=== PATIENT | female | born 1935 | race Caucasian/White ===

== ENCOUNTER 2016-06-14 09:31 | Emergency (ER) | payer OTHER ==
--- NOTE | 2016-06-14 10:02 | PROVIDER DOCUMENTATION ---
HPI-Neurological Disorder - General Chief Complaint: Stroke-Like Symptoms Stated Complaint: Poss TIA Time Seen by Provider: 06/14/16 09:34 Source: patient, family, EMS Allergies/Adverse Reactions: Patient Allergies Allergy/AdvReac Type Severity Reaction Status Date / Time promethazine HCl * Allergy Severe ANAPHYLAXIS Verified 06/14/16 10:45 [From Phenergan] ;ITCHING;DE LUSIONAL; sulfamethoxazole Allergy Severe HIVES; Verified 06/14/16 10:45 [From Bactrim] "RAISES TEMPERATURE" diazepam [From Valium] Allergy ITCHING Verified 06/14/16 10:45 trimethoprim [From Bactrim] Allergy HIVES;"RAISES Verified 06/14/16 10:45 TEMPERATURE" morphine AdvReac ITCHING Verified 06/14/16 10:45 Home Medications: Home Medication List Medication Instructions Recorded Confirmed Last Taken Type Allopurinol 300 mg PO QAM 12/02/13 06/14/16 06/13/16 History Isosorbide Mononitrate E.r. [Imdur] 30 mg PO QAM 12/02/13 06/14/16 06/13/16 History Metoprolol Succinate E.r. [Toprol 25 mg PO BID #0 05/19/14 06/14/16 06/13/16 Rx Xl] Omeprazole [Prilosec] 20 mg PO DAILY@0700 #0 capsule 11/08/15 06/14/16 06/13/16 Rx Cinnamon Bark [Cinnamon] 500 mg PO DAILY 12/02/15 06/14/16 06/13/16 History Multivitamin [Multivitamins] 1 each PO DAILY 12/02/15 06/14/16 06/13/16 History Losartan [Cozaar] 100 mg PO QAM #0 tablet 12/09/15 06/14/16 06/13/16 Rx Cranberry Conc/Ascorbic Acid 1 each PO DAILY 06/14/16 06/14/16 06/14/16 History [Cranberry Concentrate Softgel] Escitalopram [Lexapro] 10 mg PO DAILY 06/14/16 06/14/16 06/14/16 History Ranitidine [Zantac] 150 mg PO BID 06/14/16 06/14/16 06/13/16 History Rosuvastatin Calcium 10 mg PO DAILY 06/14/16 06/14/1617 History - History of Present Illness-Neuro Nature of Presenting Problem: Pt is a 80 yof that presents to er with cc of possible TIA. Daughter as historian reports that pt has dementia and hasn't been ambulatory in 6months reports she has been able to stand but not walk. 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 Daughter reports by the time she gets there that pt had a blank stare on her face and that she would not respond to being talked to. Daughter also reports two days ago she noticed pt had mouth drooping and that she thinks she had a TIA. Pt is alert and oriented with mildly confused conversation at time. Pt is able to follow commands. Severity: reports: mild Onset/Duration: reports: 2 days ago Timing: reports: still present Character of Altered Mental Status: reports: confused Any recent trauma/injury?: reports: none Character of Deficits: reports: decreased ability to stand Cognitive Baseline: alert but confused Gait Baseline: stands for transfers Similar Symptoms Previously?: Yes Recently seen or treated by another doctor?: No Review of Systems - Adult - REVIEW OF SYSTEMS - ADULT Constitutional: denies: chills, fever, fatique Eyes: reports: no symptoms reported Ears, Nose, Mouth & Throat: reports: no symptoms reported Cardiovascular: reports: no symptoms reported Respiratory: denies: chronic cough, excessive sputum production, hemoptysis, wheezing Gastrointestinal: reports: no symptoms reported Genitourinary: denies: discharge, frequent UTI's, hematuria, urgency Musculoskeletal: reports: no symptoms reported Integumentary: reports: no symptoms reported Neurological: reports: see HPI. denies: numbness, paresthesia, seizure, slurred speech, syncope, tremors Psychiatric: reports: no symptoms reported Endocrine: reports: no symptoms reported Hematologic/Lymphatic: reports: no symptoms reported Allergic/Immunologic: reports: no symptoms reported All Other Systems: Reviewed and Negative Past History - Adult - PAST MEDICAL HISTORY-ADULT Review of Records: reports: Nursing Assessment Review Major Childhood Illnesses: reports: denies history Cardiovascular: reports: HTN Respiratory: reports: denies history Gastrointestinal: reports: denies history Musculoskeletal: reports: arthritis Neurological: reports: Alzheimer's, dementia Psychiatric: reports: anxiety Endocrine/Immune: reports: denies history - PRIOR SURGERIES/PROCEDURES Surgical/Procedure History: reports: orthopedic (extremity) (right shoulder; toe ), other (cardiac cath 2013) - PRIOR HOSPITALIZATIONS Prior Hospitalizations: reports: for similar symptoms - IMMUNIZATION STATUS Childhood Immunizations: See Nurse Assessment Flu Vaccine: See Nurse Assessment - FAMILY HISTORY Family History: CAD over 55 yo, CVA/TIA - SOCIAL HISTORY Smoking: denies Substance Use: none/never Physical Exam- Neurological - Physical Exam-Neuro Initial Vital Signs Reviewed: Yes General Appearance: appears well, alert, no apparent distress Eye Exam: bilateral eye: normal inspection, PERRL, EOMI HENMT: normal ENT inspection, TMs normal, pharynx normal Head Injury: no evidence of injury Neck: non-tender, full range of motion, supple, normal inspection Respiratory: chest non-tender, lungs clear, normal breath sounds, no pleuratic chest pain, no respiratory distress, no accessory muscle use Cardiovascular: regular rate, rhythm Abdominal Exam: non tender, soft, no organomegaly, no pulsatile mass Extremity: normal range of motion, non-tender, 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 Exam: normal hearing, normal speech, PERRL Motor/Sensory: no motor deficit, no sensory deficit, no pronator drift Neurologic: veterinary science teacher II-XII nml as tested, grossly normal, no motor/sensory deficits Integumentary: normal color, normal turgor, warm/dry Psych/Mental Status: normal mood/affect - Glascow Coma Scale Best Eye Response: (4) open spontaneously Best Verbal Response: (5) oriented Best Motor Response: (6) obeys commands Total Glascow Score: 15 Progress - PLAN OF CARE/RESULTS Progress/Plan/Lab Results: Orders Category Date Time Status Cardiac Monitoring DIRECTED Care 06/14/16 09:53 Active Finger Stick Blood Sugar (ED) DIRECTED Care 06/14/16 09:53 Active Saline Loc NOW Care 06/14/16 09:53 Active CHEST-PORTABLE [RAD] Stat Exams 06/14/16 09:53 Ordered HEAD W/O CONTRAST [CT] Stat Exams 06/14/16 09:53 Ordered ALCOHOL BLOOD Stat Lab 06/14/16 09:53 Uncollected CBC WITH ELECTRONIC DIFF [HEME] Stat Lab 06/14/16 09:53 Uncollected CK PROFILE [SP CHEM] Stat Lab 06/14/16 09:53 Uncollected COMPREHENSIVE METABOLIC PANEL [CHEM] Stat Lab 06/14/16 09:53 Uncollected LACTATE, PLASMA [CHEM] Stat Lab 06/14/16 09:53 Uncollected PROTIME WITH INR [COAG] Stat Lab 06/14/16 09:53 Uncollected PTT [COAG] Stat Lab 06/14/16 09:53 Uncollected TROPONIN T Stat Lab 06/14/16 09:53 Uncollected URINALYSIS W/POSS RFLX CULT [URINALYSIS] Stat Lab 06/14/16 09:53 Uncollected Pulse Oximetry Stat Oth 06/14/16 09:53 Active EKG [EKG] Stat Ther 06/14/16 09:53 Ordered Vital Signs - 24 hr 06/14/16 06/14/16 10:35 10:50 Pulse Rate 67 73 Respiratory 21 20 Rate Blood Pressure 182/79 182/79 O2 Sat by Pulse 95 95 Oximetry Laboratory Tests 06/14/16 06/14/16 06/14/16 10:25 10:25 10:25 WBC 8.26 RBC 4.03 L Hgb 13.6 Hct 41.8 MCV 103.7 H MCH 33.7 H MCHC 32.5 L RDW Std Deviation 14.5 Plt Count 209 MPV 10.9 H Immature Gran % (Auto) 0.0 Neut % (Auto) 61.6 Lymph % (Auto) 27.6 [place] % (Auto) 8.1 Eos % (Auto) 2.5 Baso % (Auto) 0.2 Immature Gran # (Auto) 0.00 Neut # (Auto) 5.08 Lymph # (Auto) 2.28 [place] # (Auto) 0.67 H Eos # (Auto) 0.21 Baso # (Auto) 0.02 PT INR PTT (Actin FS) Sodium 141 Potassium 4.4 Chloride 100 Carbon Dioxide 28 Anion Gap 13 BUN 17 Creatinine 0.9 Estimated GFR/1.73 m2 60 BUN/Creatinine Ratio 19 Glucose 123 H Calculated Osmolality 284 Calcium 9.8 Total Bilirubin 0.48 AST 18 ALT 14 Alkaline Phosphatase 107 H Creatine Kinase 70 Troponin T Cja-L-Ksrtvztdaid Pept Total Protein 7.3 Albumin 4.1 Globulin 3.2 Albumin/Globulin Ratio 1.3 Plasma Lactate Urine Source Urine Color Urine Turbidity Urine pH Ur Specific [place] Urine Protein Ur Glucose (Stick) Ur Ketones (Stick) Urine Blood Urine Nitrite Urine Bilirubin Urobilinogen Dipstick Urine Leukocytes Urine WBC (Auto) Urine RBC (Auto) U Epithel Cells (Auto) Urine Bacteria (Auto) Plasma/Serum Ethyl Alc 06/14/16 06/14/16 06/14/16 10:25 10:25 10:25 WBC RBC Hgb Hct MCV MCH MCHC RDW Std Deviation Plt Count MPV Immature Gran % (Auto) Neut % (Auto) Lymph % (Auto) [place] % (Auto) Eos % (Auto) Baso % (Auto) Immature Gran # (Auto) Neut # (Auto) Lymph # (Auto) [place] # (Auto) Eos # (Auto) Baso # (Auto) PT 10.4 INR 1.02 PTT (Actin FS) 23.6 Sodium Potassium Chloride Carbon Dioxide Anion Gap BUN Creatinine Estimated GFR/1.73 m2 BUN/Creatinine Ratio Glucose Calculated Osmolality Calcium Total Bilirubin AST ALT Alkaline Phosphatase Creatine Kinase Troponin T < 0.010 Ojb-N-Lgdxfthktvt Pept Total Protein Albumin Globulin Albumin/Globulin Ratio Plasma Lactate 1.1 Urine Source Urine Color Urine Turbidity Urine pH Ur Specific [place] Urine Protein Ur Glucose (Stick) Ur Ketones (Stick) Urine Blood Urine Nitrite Urine Bilirubin Urobilinogen Dipstick Urine Leukocytes Urine WBC (Auto) Urine RBC (Auto) U Epithel Cells (Auto) Urine Bacteria (Auto) Plasma/Serum Ethyl Alc 06/14/16 06/14/16 10:25 11:42 WBC RBC Hgb Hct MCV MCH MCHC RDW Std Deviation Plt Count MPV Immature Gran % (Auto) Neut % (Auto) Lymph % (Auto) [place] % (Auto) Eos % (Auto) Baso % (Auto) Immature Gran # (Auto) Neut # (Auto) Lymph # (Auto) [place] # (Auto) Eos # (Auto) Baso # (Auto) PT INR PTT (Actin FS) Sodium Potassium Chloride Carbon Dioxide Anion Gap BUN Creatinine Estimated GFR/1.73 m2 BUN/Creatinine Ratio Glucose Calculated Osmolality Calcium Total Bilirubin AST ALT Alkaline Phosphatase Creatine Kinase Troponin T Tet-Y-Zxegxoimczd Pept 309 Total Protein Albumin Globulin Albumin/Globulin Ratio Plasma Lactate Urine Source CATH Urine Color YELLOW Urine Turbidity CLEAR Urine pH 5.5 Ur Specific [place] 1.012 Urine Protein NEGATIVE Ur Glucose (Stick) NEGATIVE Ur Ketones (Stick) NEGATIVE Urine Blood NEGATIVE Urine Nitrite POSITIVE A Urine Bilirubin NEGATIVE Urobilinogen Dipstick NORMAL Urine Leukocytes SMALL A Urine WBC (Auto) 10-20 A Urine RBC (Auto) <10 U Epithel Cells (Auto) <10 Urine Bacteria (Auto) 4+ Plasma/Serum Ethyl Alc Laboratory Tests 06/14/16 06/14/16 06/14/16 10:25 10:25 10:25 WBC 8.26 RBC 4.03 L Hgb 13.6 Hct 41.8 MCV 103.7 H MCH 33.7 H MCHC 32.5 L RDW Std Deviation 14.5 Plt Count 209 MPV 10.9 H Immature Gran % (Auto) 0.0 Neut % (Auto) 61.6 Lymph % (Auto) 27.6 [place] % (Auto) 8.1 Eos % (Auto) 2.5 Baso % (Auto) 0.2 Immature Gran # (Auto) 0.00 Neut # (Auto) 5.08 Lymph # (Auto) 2.28 [place] # (Auto) 0.67 H Eos # (Auto) 0.21 Baso # (Auto) 0.02 PT INR PTT (Actin FS) Sodium 141 Potassium 4.4 Chloride 100 Carbon Dioxide 28 Anion Gap 13 BUN 17 Creatinine 0.9 Estimated GFR/1.73 m2 60 BUN/Creatinine Ratio 19 Glucose 123 H Calculated Osmolality 284 Calcium 9.8 Total Bilirubin 0.48 AST 18 ALT 14 Alkaline Phosphatase 107 H Creatine Kinase 70 Troponin T Afs-F-Zzemkapgoqn Pept Total Protein 7.3 Albumin 4.1 Globulin 3.2 Albumin/Globulin Ratio 1.3 Plasma Lactate Urine Source Urine Color Urine Turbidity Urine pH Ur Specific [place] Urine Protein Ur Glucose (Stick) Ur Ketones (Stick) Urine Blood Urine Nitrite Urine Bilirubin Urobilinogen Dipstick Urine Leukocytes Urine WBC (Auto) Urine RBC (Auto) U Epithel Cells (Auto) Urine Bacteria (Auto) Plasma/Serum Ethyl Alc 06/14/16 06/14/16 06/14/16 10:25 10:25 10:25 WBC RBC Hgb Hct MCV MCH MCHC RDW Std Deviation Plt Count MPV Immature Gran % (Auto) Neut % (Auto) Lymph % (Auto) [place] % (Auto) Eos % (Auto) Baso % (Auto) Immature Gran # (Auto) Neut # (Auto) Lymph # (Auto) [place] # (Auto) Eos # (Auto) Baso # (Auto) PT 10.4 INR 1.02 PTT (Actin FS) 23.6 Sodium Potassium Chloride Carbon Dioxide Anion Gap BUN Creatinine Estimated GFR/1.73 m2 BUN/Creatinine Ratio Glucose Calculated Osmolality Calcium Total Bilirubin AST ALT Alkaline Phosphatase Creatine Kinase Troponin T < 0.010 Xum-P-Gfbvpogcqnb Pept Total Protein Albumin Globulin Albumin/Globulin Ratio Plasma Lactate 1.1 Urine Source Urine Color Urine Turbidity Urine pH Ur Specific [place] Urine Protein Ur Glucose (Stick) Ur Ketones (Stick) Urine Blood Urine Nitrite Urine Bilirubin Urobilinogen Dipstick Urine Leukocytes Urine WBC (Auto) Urine RBC (Auto) U Epithel Cells (Auto) Urine Bacteria (Auto) Plasma/Serum Ethyl Alc 06/14/16 06/14/16 10:25 11:42 WBC RBC Hgb Hct MCV MCH MCHC RDW Std Deviation Plt Count MPV Immature Gran % (Auto) Neut % (Auto) Lymph % (Auto) [place] % (Auto) Eos % (Auto) Baso % (Auto) Immature Gran # (Auto) Neut # (Auto) Lymph # (Auto) [place] # (Auto) Eos # (Auto) Baso # (Auto) PT INR PTT (Actin FS) Sodium Potassium Chloride Carbon Dioxide Anion Gap BUN Creatinine Estimated GFR/1.73 m2 BUN/Creatinine Ratio Glucose Calculated Osmolality Calcium Total Bilirubin AST ALT Alkaline Phosphatase Creatine Kinase Troponin T Rjl-E-Gorjlgkhrbe Pept 309 Total Protein Albumin Globulin Albumin/Globulin Ratio Plasma Lactate Urine Source CATH Urine Color YELLOW Urine Turbidity CLEAR Urine pH 5.5 Ur Specific [place] 1.012 Urine Protein NEGATIVE Ur Glucose (Stick) NEGATIVE Ur Ketones (Stick) NEGATIVE Urine Blood NEGATIVE Urine Nitrite POSITIVE A Urine Bilirubin NEGATIVE Urobilinogen Dipstick NORMAL Urine Leukocytes SMALL A Urine WBC (Auto) 10-20 A Urine RBC (Auto) <10 U Epithel Cells (Auto) <10 Urine Bacteria (Auto) 4+ Plasma/Serum Ethyl Alc - EKG 1 Time of EKG reading by physician:: 11:19 EKG Read and Signed by:: Deysi Abraham EKG Interpretation (*Must complete 3 of following elements*): Abnormal ( JUNCTIONAL ST DEPRESSION PROBABLY NORMAL) Rate: 66 Rhythm: UNDETERMINED RHYTHM [place]: normal QRS: normal - XRAY 1 XRAY: Bilateral XRAY Study: Chest Impression: Normal XRAY Interpretation: nad Departure - Departure Time of Disposition Order: 13:04 DIAGNOSIS: UTI (urinary tract infection) Qualifiers: Urinary tract infection type: site unspecified Hematuria presence: without hematuria Qualified Code(s): N39.0 - Urinary tract infection, site not specified Altered mental status Qualifiers: Altered mental status type: unspecified Qualified Code(s): R41.82 - Altered mental status, unspecified Disposition: HOME 01 Certified Medical Emergency: Emergent Condition: Stable Additional Instructions: Follow up with pcp ED Follow Up Instructions: You have been treated by a care provider in the Emergency Department. These instructions are being provided to you so you can have an understanding of how to care for yourself upon discharge. Upon discharge from the Emergency Department, you are responsible for making arrangements for follow-up care by a physician of your choice. Take all prescribed medications as directed. Return to the Emergency Department immediately for any new or worsening symptoms. You may call the Physician Referral phone number at [phone] to obtain a list of Physicians who are taking new patients. Attestation - Scribe Verification/Attestation Scribe:: Arnulfo Bustamante Acting as Scribe for:: Deysi Abraham Scribe documention review:: This chart was documented by a scribe and accurately reflects the service the provider performed and the decisions made by the provider. Physician Attestation - Physician Attestation I, the provider, attest to the following statement:: Deysi Abraham Physician documentation Attestation:: This documentation recorded by the scribe accurately reflects the service I personally performed and the decisions made by me.
--- NOTE | 2016-06-14 10:38 | Diag Imaging Result Document ---
PROCEDURE NAME: CHEST-PORTABLE - 06/14/2016 SINGLE FRONTAL RADIOGRAPH OF THE CHEST: COMPARISON: 12/07/2015. FINDINGS: There is evidence of prior granulomatous disease, stable. Inspiration is slightly suboptimal. The lungs are grossly clear otherwise. There is no definite pleural fluid collection. Cardiac silhouette and central vasculature are grossly unremarkable for AP technique and they are stable. IMPRESSION: No definite acute pathology by plain radiograph.
[2016-06-14 10:40] LABS: MANUAL DIFF NEEDED? NO
[2016-06-14 10:43] LABS: BASO% 0.2 % (0.0-0.8); EOS# 0.21 X1000 (0.0-0.7); EOS% 2.5 % (0.0-10.0); HEMATOCRIT 41.8 % (37.0-47.0); HEMOGLOBIN 13.6 g/dL (12.0-16.0); LYMPH# 2.28 X1000 (1.2-3.4); LYMPH% 27.6 % (20.5-51.1); MCH 33.7 PG (27-31); MCHC 32.5 g/dL (33-37); MCV 103.7 FL (81-99); MONO# 0.67 X1000 (0.11-0.59); MONO% 8.1 % (1.7-9.3); MPV 10.9 FL (7.4-10.4); NEUT% 61.6 % (42.2-75.2); PLT 209 X1000 (130-400); RBC 4.03 XMIL (4.2-5.4)
[2016-06-14 10:59] LABS: ALBUMIN 4.1 g/dL (3.5-5.0); CALCIUM 9.8 mg/dL (8.8-10.2); POTASSIUM 4.4 mmol/L (3.5-5.1); TOTAL BILIRUBIN 0.48 mg/dL (0.20-1.00); TOTAL PROTEIN 7.3 g/dL (6.3-8.3)
[2016-06-14 11:19] LABS: INR 1.02; PROTIME 10.4 Seconds (9.2-11.7); PTT 23.6 Seconds (22.0-36.0)
[2016-06-14 11:51] LABS: URINE CULTURE NEEDED? NO; URINE MICRO REVIEW NEEDED? NO; URINE SOURCE CATH
[2016-06-14 12:09] LABS: BILIRUBIN URINE NEGATIVE (NEGATIVE); BLOOD URINE NEGATIVE (NEGATIVE); COLOR YELLOW; GLUCOSE URINE NEGATIVE (NEGATIVE); LEUKOCYTES URINE SMALL (NEGATIVE); NITRITE URINE POSITIVE (NEGATIVE); PH URINE 5.5; PROTEIN URINE NEGATIVE (NEGATIVE); SP GRAVITY URINE 1.012; TURBIDITY URINE CLEAR (CLEAR); UR EPITHELIAL CELLS <10 /HPF (<10); URINE BACTERIA 4+ /HPF; URINE RBC <10 /HPF (<10); UROBILINOGEN URINE NORMAL (NORMAL)
--- NOTE | 2016-06-14 12:18 | EKG Report ---
Test Performed on : 06/14/2016 11:19:13 AM Test Reason : AMS Blood Pressure : / mmHG Vent. Rate : 066 BPM Atrial Rate : 066 BPM P-R Int : 188 ms QRS Dur : 070 ms QT Int : 424 ms P-R-T Axes : 063 -14 025 degrees QTc Int : 444 ms Undetermined rhythm Junctional ST depression, probably normal Borderline ECG When compared with ECG of 02-DEC-2015 13:25, Current undetermined rhythm precludes rhythm comparison, needs review Unconfirmed Result
[2016-06-14] MEDS ORDERED: ROCEPHIN 1 GM/NS 50 ML IV ONE (12:22)
[2016-06-14] MEDS ORDERED: LOPRESSOR IV ONE (13:04)
[2016-06-14] MEDS ORDERED: CIPRO PO ONE (13:04)
[2016-06-14] MEDS ORDERED: APRESOLINE IV ONE (13:16)
[2016-06-14] MEDS ORDERED: ZOFRAN IV ONE (15:07)
--- NOTE | 2016-06-14 15:09 | Diag Imaging Result Document ---
PROCEDURE NAME: HEAD W/O CONTRAST - 06/14/[address]: A CT dose reduction protocol was used. COMPARISON: 12/03/2015. FINDINGS: Stable mild atrophy. 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 No intracranial mass or hemorrhage. The skull is intact. The sinuses , mastoids, and middle ears are clear. IMPRESSION: No acute disease or change from prior. [facility]
[2016-06-14] MEDS ORDERED: ZOFRAN PO ONE (15:33)
[2016-06-14 16:41] VITALS: BP 164/67
== END 2016-06-14 17:08 | disposition home or self-care (01) ==
LOC: EDBD → ED 09:31
DX: N39.0 Urinary tract infection, site not specified (principal); R41.82 Altered mental status, unspecified; R94.31 Abnormal electrocardiogram [ECG] [EKG]; R29.810 Facial weakness; R41.0 Disorientation, unspecified; I10 Essential (primary) hypertension; G30.9 Alzheimer's disease, unspecified; F02.80 Dementia in other diseases classified elsewhere, unspecified severity, without behavioral disturbance, psychotic disturbance, mood disturbance, and anxiety; Z79.899 Other long term (current) drug therapy; F41.9 Anxiety disorder, unspecified; Z82.49 Family history of ischemic heart disease and other diseases of the circulatory system; Z82.3 Family history of stroke
CPT/HCPCS: 70450; 71010; 80053; 81001; 82550; 82948; 83605; 83880; 84484; 85025; 85610; 85730; 93005; G0480; J0360; J0696; 80320

== ENCOUNTER 2016-06-17 19:00 | Inpatient (IN) | payer OTHER ==
--- NOTE | 2016-06-17 19:32 | PROVIDER DOCUMENTATION ---
HPI-General Adult - History of Present Illness -Gen Adult Nature of Presenting Problems: A 80 y/o F presented with AMS, has chronic dementia had frequent visits with similar complains, has waxing and waning of symptoms this episode presened with 5-6 hrs of AMS and was concerned with symptoms <Jeremy Rausch - Last Filed: 06/17/16 20:14> <Supa Vee - Last Filed: 06/17/16 22:44> - General Chief Complaint: Altered Mental Status Stated Complaint: AMS Time Seen by Provider: 06/17/16 19:04 Allergies/Adverse Reactions: Patient Allergies Allergy/AdvReac Type Severity Reaction Status Date / Time promethazine HCl * Allergy Severe ANAPHYLAXIS Verified 06/17/16 19:52 [From Phenergan] ;ITCHING;DE LUSIONAL; sulfamethoxazole Allergy Severe HIVES; Verified 06/17/16 19:52 [From Bactrim] "RAISES TEMPERATURE" diazepam [From Valium] Allergy ITCHING Verified 06/17/16 19:52 trimethoprim [From Bactrim] Allergy HIVES;"RAISES Verified 06/17/16 19:52 TEMPERATURE" morphine AdvReac ITCHING Verified 06/17/16 19:52 Home Medications: Home Medication List Medication Instructions Recorded Confirmed Last Taken Type Allopurinol 300 mg PO QAM 12/02/13 06/17/16 06/13/16 History Isosorbide Mononitrate E.r. [Imdur] 30 mg PO QAM 12/02/13 06/17/16 06/13/16 History Metoprolol Succinate E.r. [Toprol 25 mg PO BID #0 05/19/14 06/17/16 06/13/16 Rx Xl] Omeprazole [Prilosec] 20 mg PO DAILY@0700 #0 capsule 11/08/15 06/17/16 06/13/16 Rx Cinnamon Bark [Cinnamon] 500 mg PO DAILY 12/02/15 06/17/16 06/13/16 History Multivitamin [Multivitamins] 1 each PO DAILY 12/02/15 06/17/16 06/13/16 History Losartan [Cozaar] 100 mg PO QAM #0 tablet 12/09/15 06/17/16 06/13/16 Rx Ciprofloxacin HCl [Cipro] 500 mg PO BID #20 tablet 06/14/16 06/17/16 Unknown Rx Cranberry Conc/Ascorbic Acid 1 each PO DAILY 06/14/16 06/17/16 06/14/16 History [Cranberry Concentrate Softgel] Escitalopram [Lexapro] 10 mg PO DAILY 06/14/16 06/17/16 06/14/16 History Ondansetron Odt [Zofran 4 mg Odt] 4 mg PO Q6H PRN PRN #10 tablet 06/14/16 Unknown Rx Ranitidine [Zantac] 150 mg PO BID 06/14/16 06/17/16 06/13/16 History Rosuvastatin Calcium 10 mg PO DAILY 06/14/16 06/17/16 06/14/16 History Review of Systems - Adult - REVIEW OF SYSTEMS - ADULT Constitutional: reports: no symptoms reported Eyes: reports: no symptoms reported Ears, Nose, Mouth & Throat: reports: no symptoms reported Cardiovascular: reports: no symptoms reported Respiratory: reports: no symptoms reported Gastrointestinal: reports: no symptoms reported Genitourinary: reports: no symptoms reported Musculoskeletal: reports: no symptoms reported Integumentary: reports: no symptoms reported Neurological: reports: no symptoms reported Psychiatric: reports: no symptoms reported Endocrine: reports: no symptoms reported Hematologic/Lymphatic: reports: no symptoms reported Allergic/Immunologic: reports: no symptoms reported All Other Systems: Reviewed and Negative <Jeremy Rausch - Last Filed: 06/17/16 20:14> Past History - Adult - PAST MEDICAL HISTORY-ADULT Review of Records: reports: Old Records Reviewed, Nursing Assessment Review, Medications Reviewed, Social history reviewed & non-contributory. Major Childhood Illnesses: reports: denies history Cardiovascular: reports: HTN Respiratory: reports: denies history Gastrointestinal: reports: denies history Obstetrical/Gynecological: reports: denies history Genitourinary: reports: denies history Musculoskeletal: reports: arthritis Neurological: reports: Alzheimer's, dementia Psychiatric: reports: anxiety Endocrine/Immune: reports: denies history Other Conditions: reports: denies history - PRIOR SURGERIES/PROCEDURES Surgical/Procedure History: reports: orthopedic (extremity) (right shoulder; toe ), other (cardiac cath 2013) - PRIOR HOSPITALIZATIONS Prior Hospitalizations: reports: for similar symptoms - IMMUNIZATION STATUS Childhood Immunizations: See Nurse Assessment Flu Vaccine: See Nurse Assessment - FAMILY HISTORY Family History: CAD over 55 yo, CVA/TIA <Jeremy Rausch - Last Filed: 06/17/16 20:14> Physical Exam-General - PHYSICAL EXAM-ADULT Initial Vital Signs Reviewed: Yes - CONSTITUTIONAL General Appearance: appears well, no apparent distress - EYES Eyes: PERRL/EOMI, pink conjunctivae, fundi clear, no AV nicking - HEAD, EARS, NOSE, MOUTH & THROAT HENMT: normocephalic/atraumatic, moist mucous membranes, normal ENT inspection, TMs normal - NECK Neck: non-tender, full range of motion - RESPIRATORY Respiratory: chest non-tender, lungs clear, normal breath sounds, no pleuratic chest pain, no respiratory distress, no accessory muscle use - CARDIOVASCULAR Cardiovascular: normal peripheral pulses, regular rate, rhythm, no edema, no gallop, no JVD - GASTROINTESTINAL (ABDOMEN) Abdominal Exam: normal bowel sounds, non tender, soft - MUSCULOSKELETAL Back Exam: normal inspection, other (left arm pain from prior fracture) - NEUROLOGIC Neurologic: health navigator II-XII nml as tested, grossly normal, no motor/sensory deficits - PSYCHIATRIC Psych/Mental Status: normal mood/affect <Jeremy Rausch - Last Filed: 06/17/16 20:14> Progress - CHANGE OF SHIFT REPORT (ED Provider) Report Given and Care Transferred to:: DR Tinoco Items Pending: Labs <Jeremy Rausch - Last Filed: 06/17/16 20:14> - PLAN OF CARE/RESULTS Progress/Plan/Lab Results: Vital Signs - 24 hr 06/17/16 19:07 Temperature 97.3 F L Pulse Rate 73 Respiratory 18 Rate Blood Pressure 169/77 O2 Sat by Pulse 99 Oximetry Orders Category Date Time Status Cardiac Monitoring DIRECTED Care 06/17/16 19:18 Active Finger Stick Blood Sugar (ED) DIRECTED Care 06/17/16 19:18 Active Oxygen Therapy- ED Nursing DIRECTED Care 06/17/16 19:18 Active Saline Loc NOW Care 06/17/16 19:18 Active CHEST-1 VIEW [RAD] Stat Exams 06/17/16 20:41 Taken HEAD W/O CONTRAST [CT] Stat Exams 06/17/16 19:19 Taken ABG [RESP] Routine Lab 06/17/16 20:40 Completed ALCOHOL BLOOD Stat Lab 06/17/16 19:52 Completed CBC WITH ELECTRONIC DIFF [HEME] Stat Lab 06/17/16 19:52 Completed CK PROFILE [SP CHEM] Stat Lab 06/17/16 19:52 Completed COMPREHENSIVE METABOLIC PANEL [CHEM] Stat Lab 06/17/16 19:52 Completed LACTATE, PLASMA [CHEM] Stat Lab 06/17/16 19:52 Completed PROTIME WITH INR [COAG] Stat Lab 06/17/16 19:52 Completed PTT [COAG] Stat Lab 06/17/16 19:52 Completed TROPONIN T Stat Lab 06/17/16 19:52 Completed URINALYSIS W/POSS RFLX CULT [URINALYSIS] Stat Lab 06/17/16 19:53 Ordered URINE DRUG SCREEN Stat Lab 06/17/16 19:18 Uncollected CefTRIAXONE 1 GM/NS [Rocephin 1 gm/Ns] 50 ml Med 06/17/16 20:03 Discontinued IV NOW Pulse Oximetry Stat Oth 06/17/16 19:18 Active EKG [EKG] Stat Ther 06/17/16 19:18 Ordered Laboratory Tests 06/17/16 06/17/16 06/17/16 19:52 19:52 19:52 WBC 12.92 H RBC 3.89 L Hgb 13.4 Hct 39.5 MCV 101.5 H MCH 34.4 H MCHC 33.9 RDW Std Deviation 14.5 Plt Count 203 MPV 10.9 H Immature Gran % (Auto) 0.4 Neut % (Auto) 76.2 H Lymph % (Auto) 12.4 L [place] % (Auto) 9.4 H Eos % (Auto) 1.4 Baso % (Auto) 0.2 Immature Gran # (Auto) 0.05 H Neut # (Auto) 9.85 H Lymph # (Auto) 1.60 [place] # (Auto) 1.22 H Eos # (Auto) 0.18 Baso # (Auto) 0.02 PT INR PTT (Actin FS) Specimen Type Sample Site pH pCO2 pO2 HCO3 Base Excess Oxyhemoglobin ABG O2 Sat (Calculated) ABG O2 Saturation ABG Carboxyhemoglobin ABG Methemoglobin All Test A-a O2 Difference Total Hemoglobin Lactate Blood Gas Modality FiO2 % Sodium 132 L Potassium 5.3 H Chloride 92 L Carbon Dioxide 22 L Anion Gap 18 BUN 51 H Creatinine 5.8 H Estimated GFR/1.73 m2 7 BUN/Creatinine Ratio 9 Glucose 140 H Calculated Osmolality 281 Calcium 9.4 Total Bilirubin 0.48 AST 19 ALT 12 Alkaline Phosphatase 96 Creatine Kinase 98 Troponin T Total Protein 7.4 Albumin 3.5 Globulin 3.9 Albumin/Globulin Ratio 0.9 Plasma Lactate Plasma/Serum Ethyl Alc 06/17/16 06/17/16 06/17/16 19:52 19:52 19:52 WBC RBC Hgb Hct MCV MCH MCHC RDW Std Deviation Plt Count MPV Immature Gran % (Auto) Neut % (Auto) Lymph % (Auto) [place] % (Auto) Eos % (Auto) Baso % (Auto) Immature Gran # (Auto) Neut # (Auto) Lymph # (Auto) [place] # (Auto) Eos # (Auto) Baso # (Auto) PT 10.9 INR 1.07 PTT (Actin FS) 25.7 Specimen Type Sample Site pH pCO2 pO2 HCO3 Base Excess Oxyhemoglobin ABG O2 Sat (Calculated) ABG O2 Saturation ABG Carboxyhemoglobin ABG Methemoglobin All Test A-a O2 Difference Total Hemoglobin Lactate Blood Gas Modality FiO2 % Sodium Potassium Chloride Carbon Dioxide Anion Gap BUN Creatinine Estimated GFR/1.73 m2 BUN/Creatinine Ratio Glucose Calculated Osmolality Calcium Total Bilirubin AST ALT Alkaline Phosphatase Creatine Kinase Troponin T < 0.010 Total Protein Albumin Globulin Albumin/Globulin Ratio Plasma Lactate 1.0 Plasma/Serum Ethyl Alc 06/17/16 20:40 WBC RBC Hgb Hct MCV MCH MCHC RDW Std Deviation Plt Count MPV Immature Gran % (Auto) Neut % (Auto) Lymph % (Auto) [place] % (Auto) Eos % (Auto) Baso % (Auto) Immature Gran # (Auto) Neut # (Auto) Lymph # (Auto) [place] # (Auto) Eos # (Auto) Baso # (Auto) PT INR PTT (Actin FS) Specimen Type ARTERIAL Sample Site R RADIAL pH 7.38 pCO2 39 pO2 61 HCO3 23.4 Base Excess -1.8 Oxyhemoglobin 91.0 L ABG O2 Sat (Calculated) 16.5 ABG O2 Saturation 95.0 ABG Carboxyhemoglobin 2.30 ABG Methemoglobin 1.9 H All Test YES A-a O2 Difference 40.0 Total Hemoglobin 12.9 Lactate 0.80 Blood Gas Modality ROOM AIR FiO2 % 21.0 Sodium Potassium Chloride Carbon Dioxide Anion Gap BUN Creatinine Estimated GFR/1.73 m2 BUN/Creatinine Ratio Glucose Calculated Osmolality Calcium Total Bilirubin AST ALT Alkaline Phosphatase Creatine Kinase Troponin T Total Protein Albumin Globulin Albumin/Globulin Ratio Plasma Lactate Plasma/Serum Ethyl Alc 2238: Hospitalist paged - CT/MRI 1 CT Study: Head (No visible acute process; No hemorrhage, no mass effect per Dr. Louis) Impression: See EMR Report CT Results: See report - CONSULTS/PCP/HOSPITALIST Notification #1 *Consult/PCP/Hospitalist*: Dr. Altamirano (Hospitalist) Time Discussed: 22:44 Consult Disposition: Admit - CHANGE OF SHIFT REPORT (ED Provider) Report Given and Care Transferred to:: Dr. Tinoco Time of Transfer: 20:00 Items Pending: CT/MRI Results <Supa Vee - Last Filed: 06/17/16 22:44> Departure <Jeremy Rausch - Last Filed: 06/17/16 20:14> - Departure Time of Disposition Order: 22:37 Certified Medical Emergency: Emergent <Supa Vee - Last Filed: 06/17/16 22:44> - Departure DIAGNOSIS: Hyperkalemia Altered mental status Qualifiers: Altered mental status type: unspecified Qualified Code(s): R41.82 - Altered mental status, unspecified Acute renal failure Qualifiers: Acute renal failure type: unspecified Qualified Code(s): N17.9 - Acute kidney failure, unspecified Disposition: ADMITTED INPATIENT 09 Condition: Stable Referrals: Charanjit Lara MD [Primary Care Provider] - Attestation - Scribe Verification/Attestation Scribe:: Supa Vee Acting as Scribe for:: Armando Tinoco Scribe documention review:: This chart was documented by a scribe and accurately reflects the service the provider performed and the decisions made by the provider. <Supa Vee - Last Filed: 06/17/16 22:44> Physician Attestation
[2016-06-17 19:59] LABS: MANUAL DIFF NEEDED? NO
[2016-06-17] MEDS ORDERED: ROCEPHIN 1 GM/NS 50 ML IV ONE (20:03)
[2016-06-17 20:09] LABS: BASO% 0.2 % (0.0-0.8); EOS# 0.18 X1000 (0.0-0.7); EOS% 1.4 % (0.0-10.0); HEMATOCRIT 39.5 % (37.0-47.0); HEMOGLOBIN 13.4 g/dL (12.0-16.0); IMM GRAN# 0.05 X1000 (0.0-0.04); IMM GRAN% 0.4 % (0.0-0.5); LYMPH% 12.4 % (20.5-51.1); MCH 34.4 PG (27-31); MCHC 33.9 g/dL (33-37); MCV 101.5 FL (81-99); MONO# 1.22 X1000 (0.11-0.59); MONO% 9.4 % (1.7-9.3); MPV 10.9 FL (7.4-10.4); NEUT% 76.2 % (42.2-75.2); PLT 203 X1000 (130-400); RBC 3.89 XMIL (4.2-5.4)
[2016-06-17 20:28] LABS: INR 1.07; PROTIME 10.9 Seconds (9.2-11.7); PTT 25.7 Seconds (22.0-36.0)
[2016-06-17 20:44] LABS: ALBUMIN 3.5 g/dL (3.5-5.0); CALCIUM 9.4 mg/dL (8.8-10.2); POTASSIUM 5.3 mmol/L (3.5-5.1); TOTAL BILIRUBIN 0.48 mg/dL (0.20-1.00); TOTAL PROTEIN 7.4 g/dL (6.3-8.3)
[2016-06-17 20:49] LABS: ALLEN TEST YES; BE -1.8 mmoll (-3.0-3.0); BLOOD TYPE ARTERIAL; DRAW SITE R RADIAL; METHB 1.9 % (0.0-1.5); MODALITY ROOM AIR; O2(CT) 16.5 mL/dL (15.0-23.0); PCO2(98.6) 39 mmHg (35-45); PO2(98.6) 61 mmHg (60-100); SAMPLE BLOOD; THB 12.9 g/dL (11.5-17.4); pH(98.6) 7.38 (7.35-7.45)
[2016-06-17] MEDS ORDERED: NS 500 ML IV ONE (22:40)
[2016-06-17] MEDS ORDERED: KAYEXALATE PO ONE (22:43)
--- NOTE | 2016-06-17 23:00 | Diag Imaging Result Document ---
PROCEDURE NAME: HEAD W/O CONTRAST - 06/17/2016 CT BRAIN WITHOUT CONTRAST: TECHNIQUE: Dose reduction protocol. COMPARISON: 06/14/2016. FINDINGS: No parenchymal hemorrhage. No epidural or subdural hematoma. No subarachnoid hemorrhage. There are chronic microvascular ischemic changes. Mild atrophy. No sinus opacification. IMPRESSION: 1. No hemorrhage. 2. Mild atrophy with chronic microvascular ischemic changes. No definite change compared to the prior exam. A preliminary report was given at 8:48 p.m.
[2016-06-17 23:15] LABS: URINE SOURCE CATH
[2016-06-17 23:22] LABS: BILIRUBIN URINE NEGATIVE (NEGATIVE); BLOOD URINE SMALL (NEGATIVE); COLOR ORANGE; GLUCOSE URINE NEGATIVE (NEGATIVE); LEUKOCYTES URINE LARGE (NEGATIVE); NITRITE URINE NEGATIVE (NEGATIVE); PH URINE 5.5; PROTEIN URINE 50 mg/dL (NEGATIVE); SP GRAVITY URINE 1.008; TURBIDITY URINE HAZY (CLEAR); UROBILINOGEN URINE NORMAL (NORMAL)
[2016-06-17 23:34] LABS: UR EPITHELIAL CELLS >10 /HPF (<10); URINE BACTERIA NEGATIVE /HPF; URINE CULTURE NEEDED? YES; URINE MICRO REVIEW NEEDED? YES; URINE RBC <10 /HPF (<10); URINE WBC TNTC /HPF (<10)
[2016-06-17 23:37] LABS: URINE CASTS NONE SEEN; URINE CRYSTALS NONE SEEN; URINE SMALL ROUND CELLS NONE SEEN
[2016-06-17 23:38] LABS: UR AMPHETAMINES QUAL NONE DETECTED (NONE DETECT); UR BARBITUATES QUAL NONE DETECTED (NONE DETECT); UR BENZODIAZEPIN QUAL NONE DETECTED (NONE DETECT); UR CANNABINOIDS QUAL NONE DETECTED (NONE DETECT); UR COCAINE QUAL NONE DETECTED (NONE DETECT); UR METHADONE QUAL NONE DETECTED (NONE DETECT); UR OPIATES QUAL NONE DETECTED (NONE DETECT); UR OXYCODONE QUAL NONE DETECTED (NONE DETECT); UR PCP QUAL NONE DETECTED (NONE DETECT)
[2016-06-18] MEDS ORDERED: ZOFRAN IV PRN (00:44)
[2016-06-18] MEDS ORDERED: TYLENOL PO PRN (00:44)
[2016-06-18] MEDS ORDERED: NS 1,000 ML ONE (01:45)
[2016-06-18] MEDS ORDERED: NS 1,000 ML IV SCH ×2 (03:30→15:36)
[2016-06-18] MEDS ORDERED: NS 100 ML IV SCH (03:30)
[2016-06-18] MEDS: NS 1,000 ML IV SCH ×2 (04:00→14:25)
[2016-06-18] MEDS: PROTONIX IV SCH (05:39)
[2016-06-18] MEDS: ROCEPHIN 1 GM/NS 50 ML IV SCH (05:49)
[2016-06-18 05:58] LABS: MANUAL DIFF NEEDED? NO
[2016-06-18 06:02] LABS: BASO% 0.2 % (0.0-0.8); EOS# 0.11 X1000 (0.0-0.7); HEMATOCRIT 34.7 % (37.0-47.0); HEMOGLOBIN 11.8 g/dL (12.0-16.0); IMM GRAN# 0.02 X1000 (0.0-0.04); IMM GRAN% 0.2 % (0.0-0.5); LYMPH# 1.94 X1000 (1.2-3.4); MCH 34.4 PG (27-31); MCV 101.2 FL (81-99); MONO# 1.19 X1000 (0.11-0.59); MPV 10.8 FL (7.4-10.4); NEUT% 69.6 % (42.2-75.2); PLT 176 X1000 (130-400); RBC 3.43 XMIL (4.2-5.4)
--- NOTE | 2016-06-18 06:18 | HISTORY AND PHYSICAL ---
PRIMARY CARE PROVIDER: Dr. Lara. CHIEF COMPLAINT: Altered mental status. HISTORY OF PRESENT ILLNESS: Ms. Hurtado is a 80-year-old female with a past medical history of hypertension, hyperlipidemia, coronary artery disease, gout, and dementia. Her daughter brought her to the ER tonight and was concerned due to she is more confused than normal. The patient was seen in the ER on June 09, 2016, approximately 2 days ago, and was diagnosed with a urinary tract infection. At this time she did have some confusion as well and did have some problems with her blood pressure being elevated during this visit. The patient's family did decide that they did not want her admitted and wanted her to be discharged home so she was placed on an oral antibiotic of ciprofloxacin. Since then, her daughter states that her confusion has only worsened. [facility], the patient did know her name and where she was and was able to follow simple commands. She was also found to have an elevated creatinine of 5.8 and a GFR of 7. Previously on June 14, 2016, her creatinine was 0.9 and her GFR was 60. Patient's family did state that over the past few days that she has not been eating and drinking well. Urinalysis was performed which did show the patient did have a urinary tract infection and this was already previously diagnosed. Also, urine was obtained via in and out cath and only 45 mL of urine was obtained. After this, a bladder scan was performed which showed no urine being retained with a reading of zero. To further evaluate her altered mental status a CT of the head was performed which showed no hemorrhage, mild atrophy with chronic microvascular ischemic changes with no definite change compared to the prior exam. At this time, we will admit the patient for further treatment and evaluation of her acute renal failure and UTI. REVIEW OF SYSTEMS: A 14-point review of systems was conducted with the patient and all were negative except for pertinent positives mentioned in above HPI. The patient and the patient's daughter denied her complaining of headache, dizziness, chest pain, shortness of breath, or abdominal pain. She denied any nausea, vomiting, or diarrhea. The patient at this time has been nonambulatory since February. Patient does have some swelling and tenderness noted to bilateral lower extremities though her daughter states this is not of new onset. PAST MEDICAL HISTORY: 1. Hypertension. 2. Gout. 3. Dyslipidemia. 4. Coronary artery disease. 5. Paroxysmal atrial fibrillation. 6. Previous history of frequent urinary tract infections. 7. Dementia. PAST SURGICAL HISTORY: 1. Right shoulder arthroplasty. 2. Right total knee replacement. 3. Benign breast biopsy. 4. Right foot surgery. SOCIAL HISTORY: The patient currently lives in [place] with her . 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 At this time, she does have Home Health that comes out and provides assistance with her care. Her daughter, who is at bedside, is an KITCHEN MANAGER and also helps take care of her as well. I did discuss with the patient's daughter resuscitation status and end-of-life decisions and she states that she wants the patient to be a level 1 DNR with no CPR and no intubation to be performed. FAMILY HISTORY: Positive for her father having an [place] at age 83. Her mother had a history of a CVA. There is a distant family history of throat cancer, breast cancer, and brain cancer. ALLERGIES: Patient reports allergies to Phenergan, Bactrim, Valium, and morphine. HOME MEDICATIONS: 1. Allopurinol 300 mg p.o. q.a.m. 2. Cinnamon bark 500 mg p.o. daily. 3. Cipro 500 mg p.o. b.i.d. 4. Cranberry concentrate soft gel 1 p.o. daily. 5. Lexapro 10 mg p.o. daily. 6. Imdur 30 mg p.o. q.a.m. 7. Cozaar 100 mg p.o. q.a.m. 8. Toprol XL 25 mg p.o. b.i.d. 9. Multivitamin 1 p.o. daily. 10.Prilosec 10 mg p.o. daily. 11.Zofran 4 mg p.o. q.6 hours p.r.n. 12.Zantac 150 mg p.o. b.i.d. 13.Crestor 10 mg p.o. daily. DIAGNOSTIC DATA: Laboratory results: White blood cell count 12.9. Hemoglobin 13.4. Hematocrit 39.5. Platelet count 203. PT 10.9. INR 1.07. PTT 25.7. Sodium 132. Potassium 5.3. Chloride 92. Carbon dioxide 22. BUN 51. Creatinine 5.8. GFR of 7. Glucose 140. Calcium 9.4. Liver function tests within normal limits. CK 98. Troponin less than 0.01. Plasma lactate 1. Arterial blood gases were obtained on room air: pH 7.38, CO2 of 39, pO2 of 61, HCO3 of 23.4, O2 saturation was 95. Urinalysis obtained via cath was positive for protein, blood, large leukocytes, too numerous to count white blood cells though was negative for ketones, nitrites, or bacteria. Urine drug screen was negative and serum alcohol was zero. EKG showed a normal sinus rhythm at a rate of 79 with a QTc of 458. CT of the head without contrast showed no hemorrhage, mild atrophy with chronic microvascular ischemic changes, and no definite change compared to the prior exam. Chest portable showed no acute abnormalities though we are awaiting the official radiology overread. PHYSICAL EXAMINATION: VITAL SIGNS: Temperature 97.3, heart rate 79, respirations 16, blood pressure 178/83, oxygen saturation is 99% room air. GENERAL: Ms. Hurtado is a pleasant, elderly 80-year-old female who is resting in the ER stretcher, is in no acute distress. She was awake and alert though was slightly confused upon examination. Her daughter was present at bedside during the exam. HEENT: Head is atraumatic, normocephalic. Pupils are equal, round, and reactive to light, are 3 mm bilaterally and brisk. Patient did have what appears to be a subconjunctival hemorrhage noted to the left eye for which the patient's daughter states was present starting 2 days ago after her ER visit for high blood pressure. Subconjunctivae were pink. Oral mucosa is moist. Oropharynx is clear. NECK: Supple. Trachea is midline. No JVD noted. No carotid bruits noted upon auscultation bilaterally. CARDIOVASCULAR: Patient has normal S1, S2. No murmurs, gallops, or rubs appreciated with a regular rate and rhythm. PULMONARY: Patient has symmetrical chest expansion bilaterally. Lung sounds were clear to auscultation in bilateral full [place]. ABDOMEN: Soft, nondistended, though the patient does have a protuberant abdomen noted. No tenderness or facial grimacing noted upon palpation. Bowel sounds were present in all 4 quadrants, were normoactive. EXTREMITIES: No cyanosis, clubbing, or pitting edema noted in bilateral extremities though the patient does have some swelling noted to bilateral lower legs. Upon palpation, the patient reports that this was tender. Daughter states that this is not of new onset and has been present for quite some time. Pulse, motor, and sensory are intact in all extremities as well. Pedal pulses are 3 plus bilaterally. Capillary refill is less than 3. Patient does have equal muscle strength bilaterally though does appear to have some overall decreased muscle strength in her legs. NEUROLOGICAL: Patient alert and oriented to person and place, not time. Cranial nerves II through XII appear to be grossly intact. ASSESSMENT AND PLAN: 1. Acute renal failure. This could be multifactorial. Patient does appear to have some fluid volume depletion though this could have been further complicated by medications as well. We have held all nephrotoxic medications at this time. The patient did receive a normal saline bolus in the ER and we will continue fluid hydration with normal saline at 100 mL per hour. We will closely monitor her urine output and place a Cisneros catheter if necessary to do so. We have placed an order for a bilateral renal ultrasound in the morning to rule out any further etiology. We also placed a consult with Dr. Merritt and we will await his evaluation and further recommendations as well. 2. Urinary tract infection. We have held the patient's Cipro for which she was previously being treated with for this and have placed her on Rocephin 1 g IV q.24 hours. A urine culture has been placed and we are awaiting those results also. 3. Fluid volume depletion. We will continue with fluid resuscitation as mentioned above for number 1 and continue to follow. 4. Hypertension. We will continue with her Imdur and metoprolol though at this time we have held her Cozaar due to her renal function. 5. Dementia. The patient is alert and oriented to person and place though at this time her daughter does state that she seems to be a little more confused from her baseline. We have ordered neuro checks q.4 hours and we will continue to follow though her current worsened altered mental status could be secondary to infection from her urinary tract infection. 6. Hyperlipidemia. We will hold her Crestor at this time due to her acute kidney injury. 7. Gastroesophageal reflux disease. We will continue with Protonix 40 mg IV q.24 hours for this as well as GI prophylaxis. The patient will be placed on the medical floor with telemetry. She will have vital signs q.4 h. We will do strict intake and output q.8 hours. DVT prophylaxis will be provided with heparin 5000 units subcutaneous q.12 hours. We will implement aspiration precautions as well as neurological checks. She will be placed on a heart healthy diet. We have placed orders for case management and community mental health social worker as the patient may require rehab placement upon discharge. We will repeat a CBC and a renal profile in the morning. The patient's blood sugar was slightly elevated at 140 and looking back has been elevated previously. We will place an order for a hemoglobin A1c and we will continue to monitor her glucose with fingersticks for any need for further intervention. Further orders and recommendations pending hospital course, diagnostic studies, and physician evaluation. Dictated by TRACEE Park for Seth Altamirano MD
[2016-06-18 06:42] LABS: ALBUMIN 3.2 g/dL (3.5-5.0); CALCIUM 8.3 mg/dL (8.8-10.2); POTASSIUM 5.2 mmol/L (3.5-5.1)
--- NOTE | 2016-06-18 08:32 | Diag Imaging Result Document ---
PROCEDURE NAME: CHEST-1 VIEW - 06/17/2016 PORTABLE CHEST: COMPARISON: Compared to 06/14/2016. FINDINGS: Poor inspiratory effort. The heart is not enlarged. Mild increased interstitial markings may simply represent crowding of the vasculature. No pleural effusions identified. No consolidation. Prior orthopedic replacement of the right shoulder. Longstanding fracture and deformity to the left shoulder. IMPRESSION: Poor inspiratory effort with mild pulmonary edema. [facility]
[2016-06-18] MEDS: TOPROL XL PO SCH ×2 (09:00→22:40)
[2016-06-18] MEDS: HEPARIN SUBQ SCH ×2 (09:00→22:41)
[2016-06-18] MEDS: THERA M PLUS PO SCH (09:00)
[2016-06-18] MEDS: IMDUR PO SCH (09:00)
--- NOTE | 2016-06-18 11:38 | Diag Imaging Result Document ---
PROCEDURE NAME: US RENAL 2 (RETROPER) COMPLETE - 06/18/2016 RENAL ULTRASOUND: FINDINGS: The right kidney measures 10.4 x 5.6 x 5.8 cm. Normal renal echogenicity and cortical thickness. No renal stone or hydronephrosis. No renal mass. The left kidney measures 10.4 x 5.6 x 5.9 cm. Normal renal echogenicity and cortical thickness. No renal stone or hydronephrosis. No renal mass. A Cisneros catheter has the urinary bladder decompressed. IMPRESSION: Normal renal ultrasound.
[2016-06-18 18:28] LABS: UR CREAT RANDOM 45.6 mg/dL (11-20); UR PROT RANDOM 73.6 mg/dL
[2016-06-18] MEDS ORDERED: ROCEPHIN 1 GM/NS 50 ML IV SCH (21:00)
--- NOTE | 2016-06-18 23:05 | CONSULTATION ---
DATE OF CONSULTATION: 06/18/2016 REASON FOR ADMISSION: Altered mental status with confusion and lethargy. REASON FOR CONSULT: Acute kidney injury. HISTORY OF PRESENT ILLNESS: Ms Hurtado is a 80-year-old white female who has not been seen by our service in the past who has recently been treated with ciprofloxacin for urinary tract infection by her primary care physician. Patient's family had noted that she was having problems with confusion and increased lethargy. The patient was treated in the emergency room on 06/09/2016 and was diagnosed with urinary tract infections secondary to confusion. She was treated with ciprofloxacin. She did have some problems with her blood pressure during that episode and the family had noted that she was already on her Cozaar. She was discharged home on oral antibiotics. Daughter stated that she became much more confused, increased lethargy. She was brought to [facility] Emergency Department. At that time patient continued with altered mental status, knew her name and responded well but was unable to communicate and follow simple commands. It was found in the emergency room her creatinine was 5.8 and a GFR of 7 at which time on her previous admission in the emergency room her creatinine was 0.9. Patient 's family did state that she has not been eating and drinking since being started on her antibiotic but did continue to take her current medication. Urine was obtained with an in and out catheterization. She had a CT of the head without contrast which showed mild atrophy and chronic microvascular ischemic changes but no acute disease. Subsequently patient was admitted for treatment and evaluation of acute renal failure, UTI and altered mental status. Patient is currently resting in bed. She does respond to her name. She is confused as to place and recent events. Unable to give accurate history though she does deny pain. PAST MEDICAL HISTORY: Noted for hypertension, gout, dyslipidemia, coronary artery disease, atrial fibrillation, frequent urinary tract infections and dementia. PAST SURGICAL HISTORY: Right shoulder arthroplasty, right total knee replacement, benign breast biopsy and right foot surgery. SOCIAL HISTORY: She is . She lives with her spouse. She has home health to come in to assist with her care. Her daughter is able to assist also. There was no one at her bedside during this evaluation. Daughter had stated that patient was to be a DNR level 1 with no CPR, intubation to be performed. This is currently on her chart. FAMILY HISTORY: Positive for her father having an [place] at the age of 83, mother had history of a CVA, distant family history of throat cancer, breast cancer and brain cancer. CURRENT ALLERGIES: Phenergan, Bactrim, Valium and morphine. HOME MEDICATIONS: Allopurinol, cinnamon bark, Cipro, cranberry concentrate, Lexapro, Imdur, Cozaar, Toprol, vitamins, Prilosec, Zofran, Zantac and Crestor. REVIEW OF SYSTEMS: Unable to obtain per patient. Obtained most per previous and current H and Ps, family not available. HER MOST RECENT VITAL SIGNS: Her temperature is 98.5 degrees, blood pressure 124/88, heart rate 76, respirations 18. She has had 0 in. She has had 0 out. She has a Cisneros catheter in place. Minimal amount in the bag. LABS: Sodium 133, potassium 5.2, chloride 95, CO2 21, BUN 53, creatinine 6.7, glucose 131. Her anion gap is 17, calcium 8.3, phosphorus 7.7, albumin 3.2. White count 10.79, hemoglobin 11.8, hematocrit 34.7 with a platelet count of 176,000, pro time 10.9, INR 1.07, PTT 25.7. ABGs pH 7.38, CO2 39, PO2 61, bicarb 23.4 on room air. Renal ultrasound indicates right and left kidney measuring 10.4, no stones, mass or hydronephrosis. Negative urine drug screen. Negative plasma serum ethylene alcohol. Urinalysis with proteinuria, hematuria, leukocytes. Secondary urine culture has been sent down. PHYSICAL EXAMINATION: General: This is a 80-year-old white female. She is resting quietly in bed. She is in no acute distress. Skin is warm and dry. She remains confused but cooperative. HEENT: Normocephalic, atraumatic. Conjunctiva is pale. Left sclerae is reddened. She has FER[place]. Mucous membranes are dry. Neck: Supple. Trachea midline. No JVD. Cardiovascular: Regular rate and rhythm. S1, S2 noted without murmur or gallop. Lungs: Clear to auscultation anteriorly. Equal excursion on room air. Abdomen: Soft, round, nontender. Positive bowel sounds. Genitourinary: Cisneros catheter is in place. No redness or drainage noted. Extremities: She has no edema, no clubbing or cyanosis. Integumentary: No rashes or lesions evident. Neurological: As mentioned above. ASSESSMENT AND PLAN: 1. Acute kidney injury. This may be multifactorial secondary to volume depletion. The patient has been on her ARB and has been treated with an antibiotic. Her renal ultrasound is negative. At this time due to her volume depletion she continues on normal saline at 100 mL an hour. We will reevaluate and monitor patient's I's and O's in the morning and check labs. No indication for intervention at this time. 2. Electrolytes. Patient has mild hyperkalemia. No need for intervention. We will continue to monitor. 3. Acid-base balance. This remains stable. 4. Anemia. This is close to target. 5. Altered mental status. This is multifactorial, associated also with a history of dementia. Patient is now a do not resuscitate level 1. I would like to thank you for allowing us to follow with this patient. Data reviewed, discussed with Ena Aleman on 06/18/16. I agree with the above assessment and plan of care. rg Dictated by TRACEE Mcneil for Dg Merritt MD MTDD
[2016-06-19] MEDS: PROTONIX IV SCH (01:42)
[2016-06-19] MEDS: SODIUM CHLORIDE 0.9% INJ SCH (01:42)
[2016-06-19] MEDS: ROCEPHIN 1 GM/NS 50 ML IV SCH (04:54)
[2016-06-19 07:03] LABS: MANUAL DIFF NEEDED? NO
[2016-06-19 07:20] LABS: BASO% 0.2 % (0.0-0.8); EOS# 0.13 X1000 (0.0-0.7); EOS% 1.2 % (0.0-10.0); HEMOGLOBIN 11.9 g/dL (12.0-16.0); IMM GRAN# 0.02 X1000 (0.0-0.04); IMM GRAN% 0.2 % (0.0-0.5); LYMPH# 2.06 X1000 (1.2-3.4); LYMPH% 19.1 % (20.5-51.1); MCHC 33.1 g/dL (33-37); MCV 102.9 FL (81-99); MONO# 1.32 X1000 (0.11-0.59); MONO% 12.3 % (1.7-9.3); MPV 11.4 FL (7.4-10.4); PLT 181 X1000 (130-400)
[2016-06-19 08:09] LABS: ALBUMIN 3.2 g/dL (3.5-5.0); CALCIUM 8.2 mg/dL (8.8-10.2); POTASSIUM 5.8 mmol/L (3.5-5.1)
--- NOTE | 2016-06-19 09:57 | EKG Report ---
Test Performed on : 06/18/2016 01:37:41 AM Test Reason : AMS Blood Pressure : / mmHG Vent. Rate : 079 BPM Atrial Rate : 079 BPM P-R Int : 190 ms QRS Dur : 082 ms QT Int : 400 ms P-R-T Axes : 053 -15 028 degrees QTc Int : 458 ms Normal sinus rhythm. Low voltage QRS Cannot rule out Inferior infarct , age undetermined Possible Anterolateral infarct , age undetermined Abnormal ECG When compared with ECG of 14-JUN-2016 11:19, Previous ECG has undetermined rhythm, needs review Borderline criteria for Anterior infarct are now present Borderline criteria for Anterolateral infarct are now present ST no longer depressed in Anterior leads Unconfirmed Result
[2016-06-19] MEDS: THERA M PLUS PO SCH (09:59)
[2016-06-19] MEDS: TOPROL XL PO SCH (09:59)
[2016-06-19] MEDS: HEPARIN SUBQ SCH (09:59)
[2016-06-19] MEDS: IMDUR PO SCH (10:00)
--- NOTE | 2016-06-19 17:11 | PROGRESS NOTE ---
DATE: 06/19/2016 SUBJECTIVE: Patient is resting in bed. Her family is at the bedside. She is awake, alert, and interacts but has significant confusion regarding situation. OBJECTIVE: Vital signs: Temperature 98.9 degrees, pulse 69, respiratory rate 16, blood pressure 137/90. Intake and output: Intake 2.5 L. Output 200 mL. General: Elderly female, resting in bed. She is awake and alert. She is confused. HEENT: Normocephalic, atraumatic. Oral mucosa is dry. Neck: Supple. Trachea midline. Unable to discern JVD. Cardiovascular: Regular rate and rhythm. S1, S2. No murmur or gallop. Pulmonary: She has equal excursion. She is clear bilaterally. Abdomen: Soft, obese. Positive bowel sounds. : Not inspected. She has a Cisneros catheter. There is a small amount of dark urine noted. Extremities: With 2+ pretibial edema. No clubbing or cyanosis. Integumentary: Skin is warm and dry. No rash or lesion. LAB DATA: WBC of 10.4, hemoglobin 11.9, sodium 133, potassium 5.8, CO2 19, BUN 69, creatinine 8.1. She has a FENa of 4.9. ASSESSMENT AND PLAN: 1. Acute kidney injury, acute tubular necrosis. This is likely multifactorial with volume depletion, antibiotic use. Unfortunately, her renal function has not improved since being in the hospital even with IV fluids going. I did have a long discussion with the daughter about the patient's disposition and wishes. The patient is not a candidate for dialysis secondary to her severe cognitive impairment. The daughter further stated that the patient had requested multiple times to never be "hooked up to any machine"." We discussed continuing to manage the patient medically and that we would obtain a palliative care consult for this patient. The patient has already been made a DNR 1. 2. Electrolytes. Potassium is acceptable today. 3. Acid-base balance. Stable. 4. Anemia. No change. 5. Altered mental status. See #1 for plan. Data reviewed, discussed with Naren Monsivais on 06/19/16. I agree with the above assessment and plan of care. rg Dictated by TRACEE Emerson for Dg Merritt MD [facility]
--- NOTE | 2016-06-19 19:58 | PROGRESS NOTE ---
DATE: 06/19/2016 This is a 80-year-old with a past medical history of hypertension, hyperlipidemia, coronary artery disease, gout, and dementia. Daughter brought her to the emergency room concerned on 06/18/2016. She is more confused than normal. The patient was seen in the emergency room on June 09, 2016, approximately 2 days ago. Three days ago was diagnosed urinary tract infection. At this time she did have some confusion and did have some problems with the blood pressure being elevated and visit. The patient's family did decide that they did not want her admitted and wanted her to be discharged home, so she was placed on oral antibiotics and ciprofloxacin. Since then, her daughter states that her confusion has only worsened. Upon evaluation in the emergency room the patient did know her name and where she was, and was able to follow simple commands. She was found to have an elevated creatinine of 5.8, GFR of 7. Previously June 14, 2016 creatinine was 0.9. GFR was 60. Patient's family did state that over the past few days she has not been eating or drinking well. Urinalysis was performed and showed patient the had urinary tract infection. This was already previously diagnosed. She had too numerous to count white blood cells. Urine was obtained via heart catheterization. Only 45 mL the urine was obtained. A bladder scan was confirm and showed no urine being retained with the reading of 0. To further evaluate her altered mental status, CT of the head was performed which showed no hemorrhage or atrophy, but with there was chronic microvascular ischemic changes. No definite change compared to prior exam. I wanted to admit her for treatment and evaluation of her acute renal failure and urinary tract infection. She states she feels a little better today. The grandson was at the bedside. He was not really sure how she looked when she came in. She appears to be alert. She is oriented to place and person. Denies any pain or distress. Renal ultrasound was done on 06/18/2016 and was a normal renal ultrasound. Dr. Merritt was consulted and he felt she had acute kidney injury and may be multifactorial due to volume depletion. PLAN: 1. The patient has been treated with antibiotic. 2. Her renal ultrasound was negative and then decided that due to her volume depletion to continue normal saline at 100 mL an hour and monitor I Os, electrolytes, mild hyperkalemia. Did not feel that we needed any intervention. 3. Acid-base balance remains stable. 4. Anemia, which apparently is close to target. 5. Altered mental status, I think in the face of what appears to be some cognitive decline or dementia. Hematocrit is 36. Chemistry today is sodium 133, potassium 5.8, chloride 96, bicarb 19. BUN 69, creatinine 8.1. Blood sugar 97, 102, 123, and 94. Phosphorus 9.4, calcium was 8.2, albumin 3.2. ASSESSMENT AND PLAN: 1. Acute kidney injury. 2. Possible acute tubular necrosis, but this may be multifactorial with predominantly prerenal. Continue volume repletion. Review orders. She is on ceftriaxone 1 g every 24 hours. She is on Protonix 40 mg IV q.24 hours. Of note, the creatinine was up to 8.1. Urine grew out gram-negative rods 20-30,000 colonies CFU/mL.
[2016-06-20] MEDS: HEPARIN SUBQ SCH ×3 (00:17→19:55)
[2016-06-20] MEDS: TOPROL XL PO SCH ×3 (04:14→19:55)
[2016-06-20] MEDS: PROTONIX IV SCH (06:09)
[2016-06-20] MEDS: ROCEPHIN 1 GM/NS 50 ML IV SCH (06:10)
[2016-06-20 07:47] LABS: CALCIUM 8.2 mg/dL (8.8-10.2)
[2016-06-20 08:15] LABS: POTASSIUM 6.3 mmol/L (3.5-5.1)
[2016-06-20] MEDS: THERA M PLUS PO SCH (08:37)
[2016-06-20] MEDS: IMDUR PO SCH (08:37)
[2016-06-20] MEDS ORDERED: SODIUM BICARBONATE 8.4% IV PUSH ONE (08:55)
[2016-06-20] MEDS ORDERED: D50W SYRINGE IV ONE (08:56)
[2016-06-20] MEDS ORDERED: HUMULIN R IV ONE (08:57)
--- NOTE | 2016-06-20 09:35 | PROGRESS NOTE ---
DATE: 06/20/2016 SUBJECTIVE: She is still very confused. She is awake. She is just oriented to person, and that is about it. It seems to fluctuate. I am not sure how well she rested last night. Not sure when she had her last bowel movement. Daughter was at the bedside. OBJECTIVE: Vital signs: Temperature 98.5 degrees, pulse 68, respirations 22, blood pressure 174/77. HEENT: Pupils are equal and round. Lungs: Clear in all lung solano. Cardiovascular: Regular rhythm and rate, without murmur or S3. Abdomen: Soft. Skin: Warm and dry. LABORATORIES: Reviewed from yesterday. Sodium was 134, potassium 6.3, chloride 97, BUN 87, creatinine 9.6. MEDICATIONS: Reviewed her current medications. ASSESSMENT AND PLAN: 1. Acute kidney injury, acute tubular necrosis, likely multifactorial. Volume depletion and antibiotic use. Renal function is not improving even with IV fluids. Continue present IV fluids and Dr. Merritt is following. He has had a discussion with the daughter about disposition and wishes. The patient is not a candidate for dialysis secondary to her severe cognitive impairment and the patient has requested multiple times never to hook her up to a machine. 2. Potassium is elevated. 3. Acid-base balance. Stable. 4. Anemia. No significant change. 5. Altered mental status, underlying dementia, multifactorial. We reviewed her medications. We will see if we can start her on some p.o. resin to help decrease the potassium. I will give her an amp of D50 and 10 units of insulin, and will give 1 amp of bicarbonate.
--- NOTE | 2016-06-20 16:03 | PROGRESS NOTE ---
DATE: 06/20/2016 DATE AND TIME SEEN: 06/20/2016 at 0820 hours. SUBJECTIVE: Ms. Hurtado is resting quietly in bed. She continues confused. Her daughter is at her bedside. She denies any pain. OBJECTIVE: Her most recent vital signs: Her temperature is 98.4 degrees, blood pressure 170/79, heart rate is 65 and respirations are 20. She is on 2 L nasal cannula. Last recorded saturation is 98%. She has had 233 in and she has had 240 out per Cisneros catheter. LABS: Sodium is 134, potassium 6.3, chloride 97, CO2 18, BUN 87, creatinine 9.6 , glucose 110. Anion gap 19, calcium 8.2, phosphorus 10.8, albumin 3. White count 10.76, hemoglobin 11.9, hematocrit 36 and platelet count is 181. Patient has positive urine culture. Gram-negative rods. Urea nitrogen is 232. PHYSICAL EXAMINATION: General appearance: This is a 80-year-old, white female who has dementia, who is currently resting in bed. She is able to assist with exam. HEENT: Normocephalic, atraumatic. Mucous membranes are dry. Neck: Supple. Trachea midline. Unable to detect JVD. Cardiovascular: Regular rate and rhythm. No murmur or gallop appreciated. Lungs: She has clear to auscultation anteriorly. Equal excursion. She remains on room air. Abdomen : Soft, obese, nontender. Positive bowel sounds. Genitourinary: Not inspected. Cisneros catheter remains in place. Increased urinary output. This remains dark in color. Extremities: 2 + pretibial edema. No clubbing or cyanosis. Integumentary: No rashes or lesions evident. Skin is warm and dry. Neurological: Patient has underlying dementia. She is very, very pleasant and able to assist with exam. ASSESSMENT AND PLAN: 1. Acute kidney injury secondary to acute tubular necrosis. Again this remains multifactorial secondary to volume depletion and antibiotic effect. The family has made the patient a DNR level 1. Daughter has spoken today in regards with mother's wishes to not have dialysis secondary to any change in patient's outcome. We will respect these wishes. Palliative care has been consulted. They are due to come in today to evaluate. 2. Electrolytes. Patient has hyperkalemia. Dr. Henning has already treated with sodium bicarbonate, D 50 insulin and dose of Veltassa. 3. Acid-base balance. This remains stable. 4. Anemia. No change. 5. Altered mental status related to #1 associated with dementia. 6. Urinary tract infection. She has renal dosed antibiotics. I would like to thank you for allowing us to follow with this patient. Data reviewed, discussed with Ena Aleman on 06/20/16. I agree with the above assessment and plan of care. rg Dictated by TRACEE Mcneil for Dg Merritt MD [facility]
--- NOTE | 2016-06-20 17:52 | PALLIATIVE CARE CONSULTATION ---
DATE: 06/20/2016 REQUESTING PHYSICIAN: TRACEE Emerson. REASON FOR CONSULTATION: Goals of care. HISTORY OF PRESENT ILLNESS: This is a 80-year-old, female with a past medical history of hypertension, gout, dyslipidemia, coronary artery disease, atrial fibrillation, frequent urinary tract infections and dementia. She was most recently admitted on 06/18/2016 after arriving into the ER with complaints of progressive altered mental status. Her daughter reports that she was seen in the ER on 06/09/2016 and diagnosed with a urinary tract infection. She was given p.o. antibiotics but continued to worsen. The daughter states that over the last couple of months Ms. Hurtado has had more frequent episodes of confusion and a decline in her functional status. Evaluation in the ED found that Ms. Hurtado had acute renal failure. Nephrology was consulted, however, according to her severe cognitive impairment she is not a candidate for dialysis. Her kidney function continues to worsen with a BUN of 87 and creatinine of 9.6 today. Ms. Hurtado's daughter is at the bedside. The Palliative Care team has been consulted to assist with goals of care. REVIEW OF SYSTEMS: Unable to obtain. PAST MEDICAL HISTORY: See HPI. PAST SURGICAL HISTORY: 1. Right foot surgery. 2. Benign breast biopsy. 3. Right total knee replacement. 4. Right shoulder surgery. SOCIAL HISTORY: Prior to this admission she lived at home with her . Her daughter lives close and is very attentive to her care. Alcohol, tobacco and drug use have been denied. FAMILY HISTORY: Positive for throat cancer, breast cancer, brain cancer, CVA and DC. PHYSICAL EXAMINATION: General: This is a chronically ill-appearing, 80-year-old female who is minimally responsive. She does not appear to be in any acute distress. HEENT: Atraumatic, normocephalic. Neck: Trachea is midline. Cardiovascular: Regular rate and rhythm. Pulmonary: Lung sounds are diminished. Respirations are nonlabored. Abdomen: Soft. Extremities: 2+ pitting edema to bilateral lower extremities. Pulses are palpable. Skin: Warm and dry. Neurologic: Minimally responsive. Does not arouse to verbal or tactile stimulation. IMPRESSION: This is a 80-year-old, female with a past medical history as listed above in the HPI. The Palliative Care team was consulted to assist with goals of care related to Ms. Hurtado's acute kidney injury and acute tubular necrosis, and that she is not a candidate for dialysis. Her daughter who is at the bedside states that Ms. Hurtado has explained in previous conversations that she would not want to be "hooked up to any machine." She is currently a DNR level 1. The daughter states that she understands that her mom is dying and she would like to take her home with hospice services. Hospice services have been explained. A hospice consultation will be placed. Currently Ms. Hurtado's palliative performance scale is 10%. As previously mentioned, Ms. Hurtado does not appear to be in any acute distress at this time. She is a DNR level 1. The Palliative Care team will continue to follow. Thank you for this consultation. Dictated by TRACEE Hdz for Adarsh Nelson MD
[2016-06-21] MEDS: HEPARIN SUBQ SCH ×3 (01:26→21:05)
[2016-06-21] MEDS: TOPROL XL PO SCH ×3 (01:27→21:05)
[2016-06-21] MEDS: SODIUM CHLORIDE 0.9% INJ SCH (01:29)
[2016-06-21] MEDS: PROTONIX IV SCH (01:29)
[2016-06-21] MEDS: ROCEPHIN 1 GM/NS 50 ML IV SCH (04:07)
[2016-06-21] MEDS: VELTASSA PO SCH ×2 (05:12→14:12)
[2016-06-21 07:28] LABS: CALCIUM 8.8 mg/dL (8.8-10.2)
[2016-06-21 07:56] LABS: POTASSIUM 6.7 mmol/L (3.5-5.1)
[2016-06-21] MEDS: IMDUR PO SCH (11:32)
[2016-06-21] MEDS: THERA M PLUS PO SCH (11:32)
--- NOTE | 2016-06-21 12:36 | PALLIATIVE CARE PROGRESS NOTE ---
DATE: 06/21/2016 SUBJECTIVE: Ms. Hurtado is minimally responsive. She does not appear to be in any acute distress. OBJECTIVE: General: This is a chronically ill-appearing, 80-year-old female who is minimally responsive and does not appear to be in any acute distress. Cardiovascular: Regular rate and rhythm. Pulmonary: Lung sounds are diminished. Respirations are nonlabored. Abdomen: Soft. Extremities: Pulses are palpable. Skin: Warm and dry. Neurologic: Minimally responsive. She does not arouse to verbal or tactile stimulation. ASSESSMENT AND PLAN: Currently, Ms. Hurtado's family is at the bedside. They state that they have met with a hospice title insurance sales representative this morning, and plan is to discharge home with hospice today or tomorrow. They do not have any questions regarding home hospice services. Ms. Hurtado remains minimally responsive. She does not appear to be in any acute distress. PPS is 10%. She remains a DNR level 1. The palliative care team will continue to follow as needed. Dictated by TRACEE Hdz for Adarsh Nelson MD
--- NOTE | 2016-06-21 13:42 | PROGRESS NOTE ---
DATE: 06/21/2016 SUBJECTIVE: She is very lethargic. Family is at the bedside. They would like to take her home with hospice. They describe some twitching and some myoclonus at times but otherwise appears to be comfortable. OBJECTIVE: Vital signs: Temp 98.5 degrees, pulse 66, respirations 16, blood pressure 184/83. HEENT: Pupils are equal, round. Neck: CVP less than 6 cm. Lungs: Clear in all lung solano. Cardiovascular: Regular rhythm and rate without murmur or S3. Abdomen: Soft. Skin: Warm and dry. LAB: Reviewed from yesterday. Lab reviewed again today. Continues to have high potassium. ASSESSMENT PLAN: She has end-stage renal disease and the family would like to pursue palliative care. The plan is to try and go home with hospice and we will see if we can get that set up. They would like to go home as soon as possible. Do not want to pursue any more aggressive treatment. Did not want to pursue dialysis. Dr. Merritt is involved. He has had discussions with them. Dr. Nelson has evaluated as well.
[2016-06-22] MEDS: SODIUM CHLORIDE 0.9% INJ SCH (04:13)
[2016-06-22] MEDS: PROTONIX IV SCH ×2 (04:13→04:25)
[2016-06-22] MEDS: ROCEPHIN 1 GM/NS 50 ML IV SCH ×2 (04:13→04:25)
[2016-06-22 07:08] LABS: ALBUMIN 2.9 g/dL (3.5-5.0); CALCIUM 8.7 mg/dL (8.8-10.2)
[2016-06-22 07:09] LABS: POTASSIUM 6.9 mmol/L (3.5-5.1)
[2016-06-22 08:25] VITALS: BP 199/67
[2016-06-22] MEDS ORDERED: ZOFRAN ODT PO PRN (08:41)
[2016-06-22] MEDS ORDERED: CALMOSEPTINE OINTMENT TOP ONE (09:29)
--- NOTE | 2016-06-22 09:35 | PROGRESS NOTE ---
DATE: 06/22/2016 SUBJECTIVE: Ms. Hurtado had a pretty good night. She was alert and awake this morning. She did have some nausea after initial breakfast but then was able to get a cinnamon roll down and some milk. She is anxious to go home. PHYSICAL EXAMINATION: Vital Signs: Temperature 99.3 degrees, pulse 77, respirations 20, blood pressure 99/67. HEENT: Pupils are equal, round, and reactive to light and accommodation. Oral and nasal mucosa unremarkable. Conjunctivae pink. Respiratory: Lungs are clear anterolateral. Cardiovascular Examination: Regular rhythm and rate without murmur or S3. She is on 2 L O2. Extremities: I do not appreciate much pedal edema. LAB: Reviewed from yesterday. PLAN: She will go home with hospice care. We will get her ready for discharge.
[2016-06-22] MEDS: HEPARIN SUBQ SCH (10:03)
[2016-06-22] MEDS: IMDUR PO SCH (10:05)
[2016-06-22] MEDS: THERA M PLUS PO SCH (10:05)
--- NOTE | 2016-06-22 19:28 | DISCHARGE SUMMARY ---
ADMISSION DATE: 06/18/2016 DISCHARGE DATE: 06/22/2016 CHIEF COMPLAINT: This is a 80 -year-old with a past medical history of hypertension, hyperlipidemia, coronary artery disease, gout, and dementia. Her daughter brought her into the emergency room with the concern that she is more confused than normal. The patient was seen in the emergency room on 06/09/2016 approximately 2 days before and diagnosed with a urinary tract infection. At this time she presented with more confusion. PAST MEDICAL HISTORY: Past medical history is summarized. 1. Hypertension. 2. Gout. 3. Dyslipidemia. 4. Coronary artery disease. 5. Paroxysmal atrial fibrillation. 6. Previous history of frequent urinary tract infections. 7. Dementia. PAST SURGICAL HISTORY: 1. Right shoulder arthroplasty. 2. Right total knee replacement. 3. Benign breast biopsy. 4. Right surgery. HOSPITAL COURSE: She presented with acute on chronic renal failure which appears to be progression of her renal disease. Dr. Merritt was consulted and felt she had multifactorial acute kidney injury. She had been on ARBs and treated with antibiotic. Renal ultrasound was negative. She showed continued decline in her renal function in spite of fluids but did have minimal urine output. The family did not want to pursue dialysis. She did have persistent hyperkalemia which we did address. Family wanted to go home with hospice and palliative measures so we set that up. The plan is to discharge her on 06/22/2016 with hospice care. We will continue her current medications. She is on Veltassa 8.4 g daily and Protonix 40 mg p.o. daily. We will we will stop that. She is on multivitamin 1 a day, Toprol-XL 25 mg b.i.d., Imdur 30 mg a day. She was treated with Rocephin. Treatments is completed. She will be on 2 L O2 per nasal cannula. We will keep her Cisneros catheter in.
== END 2016-06-22 11:30 | disposition hospice, home (50) | DRG 683 ==
LOC: EDBD → ED 19:00 → EDIPHOLD 19:48 → UNDOADMIN 06-18 00:26 → EDIPHOLD 06-18 12:04 → 4N 06-18 12:04 → UNDODISIN 06-22 11:30
PROVIDERS: ATTEND Emergency Medicine
DX: N17.0 Acute kidney failure with tubular necrosis (principal); N39.0 Urinary tract infection, site not specified; E87.5 Hyperkalemia; I48.0 Paroxysmal atrial fibrillation; E86.9 Volume depletion, unspecified; F03.90 Unspecified dementia, unspecified severity, without behavioral disturbance, psychotic disturbance, mood disturbance, and anxiety; I10 Essential (primary) hypertension; E78.5 Hyperlipidemia, unspecified; M10.9 Gout, unspecified; D64.9 Anemia, unspecified; I25.10 Atherosclerotic heart disease of native coronary artery without angina pectoris; H11.32 Conjunctival hemorrhage, left eye; K21.9 Gastro-esophageal reflux disease without esophagitis; Z66 Do not resuscitate; Z79.899 Other long term (current) drug therapy; Z96.651 Presence of right artificial knee joint; Z82.49 Family history of ischemic heart disease and other diseases of the circulatory system; Z82.3 Family history of stroke; Z80.3 Family history of malignant neoplasm of breast; Z80.8 Family history of malignant neoplasm of other organs or systems
CPT/HCPCS: 70450; 71010; 76770; 80053; 80069; 81001; 82550; 82570; 82805; 82948; 83036; 83605; 83935; 84156; 84300; 84484; 84540; 85025; 85610; 85730; 87077; 87088; 87186; 87205; 93005; 94761; 96365; 96366; 96375; C9113; G0480; J0696; J1644; J2405; J7030; J7040; 80320; 80324; 80345; 80346; 80349; 80353; 80358; 80361; 80365; 83992; S0164